=== PATIENT | female | born 1985 | race Caucasian/White ===

== ENCOUNTER → 2020-08-11 | Outpatient (CLI) | payer OTHER | LOC: EXRD 13:30 | DX: I10 Essential (primary) hypertension (principal); Z82.71 Family history of polycystic kidney | CPT/HCPCS: 76775 ==

== ENCOUNTER → 2020-10-19 | Outpatient (CLI) | payer OTHER | LOC: EMI 10-18 10:00 | DX: G45.9 Transient cerebral ischemic attack, unspecified (principal) | CPT/HCPCS: 70553; A9577 ==

== ENCOUNTER → 2020-10-27 | Outpatient (CLI) | payer OTHER | LOC: KOH-I 10-24 13:30 | DX: E04.1 Nontoxic single thyroid nodule (principal); R59.0 Localized enlarged lymph nodes | CPT/HCPCS: 76536 ==

== ENCOUNTER → 2021-01-02 | Outpatient (CLI) | payer OTHER | LOC: KOH-I 11-10 14:00 | DX: K11.1 Hypertrophy of salivary gland (principal); R59.0 Localized enlarged lymph nodes | CPT/HCPCS: 76536 ==